=== PATIENT | male | born 2005 | race Caucasian/White ===

== ENCOUNTER 2025-02-17 00:10 | Emergency (ER) | payer SELFPAY ==
[~2025-02-17] VITALS: Ht 182.9 cm; Wt 66.0 kg
[2025-02-17 00:14] VITALS: O2SAT 99
[2025-02-17 00:21] VITALS: BP 116/71; PULSE 87; RESP 16; TEMP 36.7; O2SAT 100
== END 2025-02-17 04:39 | disposition left against medical advice (07) ==
LOC: ER 00:10
DX: R06.02 Shortness of breath (principal); Z53.21 Procedure and treatment not carried out due to patient leaving prior to being seen by health care provider
CPT/HCPCS: 71045; 93005; 99281